=== PATIENT | female | born 1990 | race African-American/Black ===

== ENCOUNTER 2016-10-31 18:53 | Emergency (ER) | payer BC ==
[~2016-10-31] VITALS: Ht 157.5 cm; Wt 62.3 kg
[2016-10-31 19:05] VITALS: BP 120/82; PULSE 96; RESP 16; TEMP 98.8; O2SAT 99
[2016-10-31] MEDS ORDERED: traMADol HCL 50 MG TAB PO ONE (20:30)
[2016-10-31] MEDS ORDERED: LIDOCAINE HCL 1% 50 ML VIAL INFIL ONE (20:30)
[2016-10-31] MEDS ORDERED: TETANUS/DIPHTHERIA TOXOID ADULT 0.5 ML VIAL IM ONE (20:30)
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
[2016-10-31 21:40] VITALS: RESP 16
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
[2016-10-31] MEDS ORDERED: DOXY100C PO (22:16)
[2016-10-31] MEDS ORDERED: IBUP800T23 PO (22:16)
== END 2016-10-31 22:35 | disposition home or self-care (01) ==
LOC: PHEFT 18:53
DX: S01.81XA Laceration without foreign body of other part of head, initial encounter (principal); W19.XXXA Unspecified fall, initial encounter; Y93.89 Activity, other specified; Z23 Encounter for immunization
CPT/HCPCS: 12013; 70450; 73060; 84703; 90471; 90714